=== PATIENT | female | born 1950 | race Caucasian/White ===

== ENCOUNTER 2017-01-13 09:30 | Outpatient (RCR) | payer MEDICARE, OTHER, MEDICAID, SELFPAY | END 2017-01-15 | LOC: INF 09:30 | PROVIDERS: Family Provider Physician Assistant Medical; PCP Physician Assistant Medical; Visit Provider Specialist | DX: C50.911 Malignant neoplasm of unspecified site of right female breast (principal) | CPT/HCPCS: 36592; 80053; 85025; 96375; 96413; 96417; 99058; 99214; 99215; C8908; G8427; J1100; J7060; J9267; J9306; J9355 ==

== ENCOUNTER → 2017-11-03 11:32 | Outpatient (CLI) | payer MEDICARE, MEDICAID, SELFPAY ==
--- NOTE | 2017-11-03 | DI.MG.S_ITS ---
BILATERAL DIGITAL SCREENING MAMMOGRAM 3D/2D WITH CAD: 11/03/2017 CLINICAL: Routine screening. Family history of breast cancer. Comparison is made to exams dated: 07/30/2016 mammogram, 07/30/2016 mammogram - [facility], and 06/24/2016 mammogram - [facility]. The tissue of both breasts is extremely dense, which lowers the sensitivity of mammography. Current study was also evaluated with a Computer Aided Detection (CAD) system. There are post operative findings in the right breast. No significant masses, calcifications, or other findings are seen in either breast. There has been no significant interval change. IMPRESSION: NEGATIVE There is no mammographic evidence of malignancy. A 1 year screening mammogram is recommended. This exam was interpreted at Station ID: [id number]. NOTE: For mammograms, a report in lay terms will be sent to the patient. Approximately 15% of breast malignancies will not be visualized mammographically. In the management of a palpable breast mass, a negative mammogram must not discourage biopsy of a clinically suspicious lesion. Electronically Signed By: Tomy bush/taylor:11/03/2017 16:59:58 copy to: Ricardo Sagastume letter sent: Normal Exam ACR BI-RADS Category 1: Negative 3341F
== END ==
PROVIDERS: PCP Physician Assistant Medical; Visit Provider Physician Assistant Medical
DX: Z12.31 Encounter for screening mammogram for malignant neoplasm of breast (principal); Z80.3 Family history of malignant neoplasm of breast
CPT/HCPCS: 77063; 77067

== ENCOUNTER 2017-12-16 09:20 | Day surgery (SDC) | payer MEDICARE, MEDICAID, SELFPAY ==
[2017-12-11 15:20] VITALS: BMI 23.2
[2017-12-16 09:46] VITALS: BP 124/80; PULSE 63; RESP 16; TEMP 36.8; O2SAT 99; BMI 23.2
[2017-12-16] MEDS: LACTATED RINGERS 1,000 ML 42 ML IV (10:05)
--- NOTE | 2017-12-16 10:10 | PM.HP.1 ---
History of Present Illness Date Patient Seen: 12/16/17 Time Patient Seen: 10:11 Chief complaint: port a cath removal [id number] Narrative: Very pleasant 67-year-old lady with a history of breast cancer. She has completed chemotherapy and her port is no longer required. She would very much like to have it removed. Patient History Medical History Arthritis (Acute) Constipation (Acute) Diverticulitis (Acute) Fibromyalgia (Acute) GERD (gastroesophageal reflux disease) (Acute) Hepatitis A (Acute) Migraines (Acute) Neuropathy (Acute) Port-A-Cath in place (Acute) Surgical History History of partial hysterectomy (Acute) Hx of cholecystectomy (Acute) Family & Social History Family History: Reviewed 12/16/17 by Nicole Lorenzo MD Social History: household members children Tobacco & Substance use: Smoking Status Never smoker alcohol intake current Substance Use Type does not use Meds Home Medications Medication Instructions Recorded Confirmed Type [ALL-ZYME] Q DAY #0 08/07/16 History [B-RIGHT ] Q DAY #0 08/07/16 History [CHARCOAL] 500 mg #0 08/07/16 History [KIDNEY BLEND] Q DAY #0 08/07/16 History [MILK THISTLE] 150 mg Q DAY #0 08/07/16 History [MORINGA LEAF POWDER] Q DAY #0 08/07/16 History [PROBIOTIC] Q DAY #0 08/07/16 History cholecalciferol (vitamin D3) 5,000 PO Q DAY #0 08/07/16 History [Vitamin D3] niacin 500 mg PO QDAY #0 08/07/16 History pyridoxine (vitamin B6) 300 mg PO QDAY #0 08/27/16 History zinc gluconate 1 tab PO QDAY #0 11/04/16 History [BILBERRY W/GRAPE EX] 80 mg PO QDAY #0 11/11/16 History [CALCIUM/MAGNESIUM] #0 11/11/16 History polysaccharide iron complex 15 mg PO Q DAY #0 12/16/16 History [IronUp] letrozole 2.5 mg PO DAILY 12/16/17 12/16/17 History Allergies Allergy/AdvReac Type Severity Reaction Status Date / Time Sulfa (Sulfonamide Allergy Unknown Pt unable Verified 12/16/17 09:44 Antibiotics) to [SULFA (SULFONAMIDE remember ANTIBIOTICS)] reaction sesame seed Allergy Rash Verified 12/11/17 15:24 Review of Systems Review of Systems All systems reviewed & are unremarkable except as noted in HPI and below Exam Vital Signs (past 8 hours): - 12/16/17 09:46 Temperature 98.2 F Pulse Rate 63 Respiratory Rate 16 Blood Pressure 124/80 H Pulse Oximetry 99 Oxygen Delivery Method Room Air Narrative Exam Narrative: Very pleasant well-nourished well-developed lady in no distress HEENT: Normocephalic and atraumatic, pupils are equal round reactive to light accommodation with anicteric sclera Lungs: Clear bilaterally Heart: Regular rate and rhythm without murmur rub or gallop Chest: Left subclavian port a cath in good position without erythema Abdomen: Soft, nontender, active bowel sounds Extremities: Warm and well perfused and without edema Assessment & Plan Plan: Assessment/Plan Narrative: Very pleasant 67-year-old lady with a history of breast cancer who has now completed chemotherapy. We discussed the risks and benefits of left subclavian port removal in the patient expressed desire to have the procedure.
--- NOTE | 2017-12-16 10:23 | SUR.OPER ---
Supine on padded OR bed, head on pillow, arms secured on padded arm boards at <90 degrees abduction, legs uncrossed, safety belt at thigh, tape over blanket over lower legs.
--- NOTE | 2017-12-16 10:32 | PM.OP.1 ---
Operative Date/Time/Diagnoses Date of procedure: 12/16/17 Time of procedure: 10:32 Pre-op diagnosis: Chemotherapy completed Post-op diagnosis: same Procedure & Clinicians Procedure: Left subclavian port removal Same procedure as scheduled: Yes Indications: Port no longer required Surgeon: Nicole Lorenzo Click Yes if Unassisted: Yes Anesthesia Type: General (Ahsaei) and Local Operative Notes Findings: Port removed in a single piece of tubing intact Closure Type: primary Estimated Blood Loss (mL): 2 Blood products transfused: none Procedure in detail: After obtaining informed consent, the patient was brought to the operating room and placed in the supine position on the operating table. Following successful induction of IV sedation with monitored anesthesia care, the chest was prepped and draped in the standard surgical fashion. A timeout was held per SCOAP protocol. Following infiltration with local anesthetic to create a field block, the existing healed incision was repeated. This was carried down through the skin and subcutaneous tissue to reveal the tubing of the implanted central venous device. The tubing was carefully dissected free from surrounding structures and delivered into the field. Pressure was held at the deltopectoral groove to prevent air embolus and backbleeding. After 5 minutes time, we continued with dissection of the remaining portion of the port. The reservoir itself remained in the pocket and has been incorporated into the tissue. This was carefully dissected free with judicious use of a scalpel. It was delivered into the field as a single piece with tubing attached. The incision was checked for hemostasis and irrigated with warm saline solution. Once we were satisfied that all was clean and dry, it was closed in 2 layers with Vicryl Monocryl sutures. Dermabond was applied to the skin incision. All sponge, needle, and instrument counts were correct at the conclusion of the case. The patient was allowed to awaken from sedation without difficulty and taken to the post anesthesia care unit in good condition. Complications: none Condition: stable Disposition: PACU Plan for aftercare: 1. Discharge to home 2. Follow-up with your primary doctor
[2017-12-16 10:36] VITALS: BP 94/55; PULSE 74; RESP 10; TEMP 36.1; O2SAT 97
[2017-12-16] MEDS: LIDOCAINE 1% W/EPI INJ 20 ML INJ (10:40)
[2017-12-16 10:42] VITALS: BP 96/51; PULSE 75; RESP 14; O2SAT 97
[2017-12-16] MEDS: BUPIVACAINE 0.5% (PF) VIAL 30 ML INJ (10:43)
[2017-12-16 10:46] VITALS: BP 101/63; PULSE 70; RESP 10; O2SAT 97
[2017-12-16 10:51] VITALS: BP 106/69; PULSE 67; RESP 10; O2SAT 99
[2017-12-16 11:03] VITALS: BP 105/70; PULSE 68; RESP 16; TEMP 36.3; O2SAT 97
== END 2017-12-16 11:15 | disposition home or self-care (01) ==
PROVIDERS: PCP Physician Assistant Medical; Visit Provider Surgery
PROC: (CPT 36590; principal; 2017-12-16 10:15)
DX: Z45.2 Encounter for adjustment and management of vascular access device (principal); Z85.3 Personal history of malignant neoplasm of breast
CPT/HCPCS: 36590; J2405; J2704; J3010

== ENCOUNTER → 2018-04-26 08:41 | Outpatient (CLI) | payer MEDICARE, MEDICAID, SELFPAY ==
[2018-04-26 09:01] LABS: Add Manual Diff / Slide Review NO; Eosinophils Percent Auto 3.8 % (2-4); Hematocrit 38.2 % (36-46); Lymphocytes Percent Auto 33.6 % (25-40); Mean Corpuscular HGB Conc 34.2 % (30-36); Mean Corpuscular Hemoglobin 30.8 PG (26-34); Neutrophils Absolute Auto 2400 /uL (3000-5900); Neutrophils Percent Auto 53.6 % (50-75); Platelet Count 231 X10^3/uL (150-400); Red Blood Cell Count 4.24 X10^6/uL (4.0-5.2); Red Cell Distribution Width 14.1 % (11.6-14.8); White Blood Cell Count 4.5 X10^3/uL (4.5-11.0)
[2018-04-26 09:30] LABS: Alanine Aminotransferase 29 IU/L (9-52); Albumin 4.6 g/dL (3.5-5.0); Albumin Globulin Ratio 1.5 (1.0-2.8); Alkaline Phosphatase 86 U/L (38-126); Aspartate Aminotransferase 37 IU/L (14-36); Bilirubin Total 0.2 mg/dL (0.2-1.3); Blood Urea Nitrogen 12 mg/dL (7-17); Calcium 9.6 mg/dL (8.4-10.2); Carbon Dioxide 29 mmol/L (22-32); Chloride 101 mmol/L (98-107); Estimated Glomerular Filt Rate > 60.0 mL/min (>60); Globulin 3.1 g/dL (1.7-4.1); Glucose 97 mg/dL (80-110); HEMOLYSIS < 15 (0-50); Potassium 4.3 mmol/L (3.4-5.1); Sodium 142 mmol/L (137-145); Total Protein 7.7 g/dL (6.3-8.2)
== END ==
PROVIDERS: PCP Physician Assistant Medical; Visit Provider Internal Medicine Hematology & Oncology
DX: C50.911 Malignant neoplasm of unspecified site of right female breast (principal)
CPT/HCPCS: 36415; 80053; 85025

== ENCOUNTER → 2018-10-12 09:26 | Outpatient (CLI) | payer MEDICARE, MEDICAID, SELFPAY | PROVIDERS: Family Provider Family Medicine; PCP Physician Assistant Medical; Visit Provider Internal Medicine Hematology & Oncology ==

== ENCOUNTER → 2018-12-29 09:19 | Outpatient (CLI) | payer MEDICARE, MEDICAID, SELFPAY ==
--- NOTE | 2018-12-29 | DI.MG.S_ITS ---
BILATERAL DIGITAL SCREENING MAMMOGRAM 3D/2D WITH CAD: 12/29/2018 CLINICAL: Routine screening. Personal history of right breast cancer. Family history of breast cancer. Comparison is made to exams dated: 11/03/2017 mammogram - [facility], 07/30/2016 mammogram - [facility], and 07/30/2016 mammogram. The tissue of both breasts is extremely dense, which lowers the sensitivity of mammography. Current study was also evaluated with a Computer Aided Detection (CAD) system. There is a round asymmetry in the right breast anterior depth central to the nipple seen on the craniocaudal view only. No other significant masses, calcifications, or other findings are seen in either breast. IMPRESSION: INCOMPLETE: NEEDS ADDITIONAL IMAGING EVALUATION The round asymmetry in the right breast may represent a cyst and is indeterminate. Additional views with possible ultrasound are recommended. This exam was interpreted at Station ID: [id number]. NOTE: For mammograms, a report in lay terms will be sent to the patient. Approximately 15% of breast malignancies will not be visualized mammographically. In the management of a palpable breast mass, a negative mammogram must not discourage biopsy of a clinically suspicious lesion. Electronically Signed By: Nicole Danielle M.D. lk/:12/29/2018 11:01:33 copy to: Ricardo Sagastume letter sent: Additional Imaging Needed ACR BI-RADS Category 0: Incomplete 3340F
== END ==
PROVIDERS: Family Provider Family Medicine; PCP Physician Assistant Medical; Visit Provider Physician Assistant Medical
DX: Z12.31 Encounter for screening mammogram for malignant neoplasm of breast (principal); Z85.3 Personal history of malignant neoplasm of breast; Z80.3 Family history of malignant neoplasm of breast
CPT/HCPCS: 77063; 77067

== ENCOUNTER → 2019-01-13 10:46 | Outpatient (CLI) | payer MEDICARE, MEDICAID, SELFPAY ==
--- NOTE | 2019-01-13 | DI.MG.S_ITS ---
UNILATERAL RIGHT DIGITAL DIAGNOSTIC MAMMOGRAM 3D/2D WITH ADDITIONAL VIEWS: 01/13/2019 CLINICAL: Additional evaluation requested from prior study. Comparison is made to exams dated: 12/29/2018 mammogram, 11/03/2017 mammogram - [facility], and 07/30/2016 mammogram - [facility]. The tissue of right breast is extremely dense, which lowers the sensitivity of mammography. There is an oval low density focal asymmetry with an obscured, indistinct, and circumscribed margin in the right breast at 12 o'clock anterior depth. This is less prominent. No other significant masses or calcifications are seen in the breast. IMPRESSION: INCOMPLETE: NEEDS ADDITIONAL IMAGING EVALUATION The oval low density focal asymmetry in the right breast is indeterminate. An ultrasound is recommended. This exam was interpreted at Station ID: [id number]. NOTE: For mammograms, a report in lay terms will be sent to the patient. Approximately 15% of breast malignancies will not be visualized mammographically. In the management of a palpable breast mass, a negative mammogram must not discourage biopsy of a clinically suspicious lesion. Electronically Signed By: Tomy bush/taylor:01/13/2019 14:43:07 copy to: Ricardo Sagastume [facility] BI-RADS Category 0: Incomplete 3340F
--- NOTE | 2019-01-13 13:29 | DI.US.S_ITS ---
COMPLETE ULTRASOUND OF RIGHT BREAST AND AXILLA: 01/13/2019 CLINICAL: Patient returns today to evaluate an architectural distortion in the right breast and palpable right axillary lump. Comparison is made to exams dated: 01/13/2019 mammogram, 12/29/2018 mammogram, 11/03/2017 mammogram, 01/13/2017 breast MRI, 09/24/2016 ultrasound - [facility], and 07/30/2016 mammogram - [facility]. Real-time ultrasound of the right breast four quadrants, retroareolar, and axilla regions was performed on the areas of interest. IMPRESSION: NEGATIVE There is no sonographic evidence of malignancy. A 1 year screening mammogram is recommended. Electronically Signed By: Tomy bush/taylor:01/20/2019 14:18:40 Entry: - 01/20/2019 14:18:40 copy to: Ricardo Sagastume letter sent: Clinical Evaluation Ultrasound BI-RADS: 1 Negative
== END ==
PROVIDERS: Family Provider Family Medicine; PCP Family Medicine; Visit Provider Internal Medicine Hematology & Oncology
DX: R92.8 Other abnormal and inconclusive findings on diagnostic imaging of breast (principal); N64.89 Other specified disorders of breast; N63.31 Unspecified lump in axillary tail of the right breast; C50.919 Malignant neoplasm of unspecified site of unspecified female breast
CPT/HCPCS: 76642; 77065; G0279

== ENCOUNTER → 2019-04-11 08:36 | Outpatient (CLI) | payer MEDICARE, MEDICAID, SELFPAY ==
[2019-04-11 09:33] LABS: Add Manual Diff / Slide Review NO; Basophils Absolute Auto 0 /uL (0-100); Basophils Percent Auto 0.7 % (0-2); Eosinophils Absolute Auto 200 /uL (0-450); Hematocrit 36.4 % (36-46); Hemoglobin 12.4 g/dL (12.0-16.0); Lymphocytes Absolute Auto 1400 /uL (1100-4500); Lymphocytes Percent Auto 35.4 % (25-40); Mean Corpuscular Hemoglobin 29.9 PG (26-34); Monocytes Absolute Auto 300 /uL (0-900); Monocytes Percent Auto 7.3 % (3-14); Neutrophils Absolute Auto 2100 /uL (1500-7000); Neutrophils Percent Auto 52.6 % (50-75); Platelet Count 236 X10^3/uL (150-400); Red Blood Cell Count 4.13 X10^6/uL (4.0-5.2); Red Cell Distribution Width 14.5 % (11.6-14.8); White Blood Cell Count 3.9 X10^3/uL (4.5-11.0)
[2019-04-11 09:39] LABS: Alanine Aminotransferase 21 IU/L (<35); Albumin 4.6 g/dL (3.5-5.0); Albumin Globulin Ratio 1.5 (1.0-2.8); Alkaline Phosphatase 65 U/L (38-126); Aspartate Aminotransferase 30 IU/L (14-36); BUN Creatinine Ratio 23.3 (6-22); Bilirubin Total 0.4 mg/dL (0.2-1.3); Blood Urea Nitrogen 14 mg/dL (7-17); Calcium 9.7 mg/dL (8.4-10.2); Carbon Dioxide 30 mmol/L (22-32); Chloride 104 mmol/L (98-107); Estimated Glomerular Filt Rate > 60.0 mL/min (>60); Glucose 101 mg/dL (80-110); HEMOLYSIS < 15 (0-50); Potassium 4.2 mmol/L (3.4-5.1); Sodium 139 mmol/L (137-145); Total Protein 7.6 g/dL (6.3-8.2)
[2019-04-13 15:20] LABS: Cancer Antigen 27.29 12 U/mL (< 38)
== END ==
PROVIDERS: PCP Family Medicine; Visit Provider Internal Medicine Hematology & Oncology
DX: C50.919 Malignant neoplasm of unspecified site of unspecified female breast (principal)
CPT/HCPCS: 36415; 80053; 85025; 86300

== ENCOUNTER → 2020-01-30 09:42 | Outpatient (CLI) | payer MEDICARE, MEDICAID, SELFPAY ==
--- NOTE | 2020-01-30 10:42 | DI.MG.S_ITS ---
Patient Name: JATINDER OCAMPO date: 1950 Sex: F Attending Physician: Nahum Indications: Date: 01/30/2020 11:00 At the request of: KATARINA GOLDBERG Procedure: MM screening mammo BI BILATERAL DIGITAL SCREENING MAMMOGRAM 3D/2D WITH CAD: 01/30/2020 CLINICAL: Routine screening. Family history of breast cancer. Breast cancer. Comparison is made to exams dated: 01/13/2019 mammogram, 12/29/2018 mammogram, and 11/03/2017 mammogram - [facility]. The tissue of both breasts is heterogeneously dense. This may lower the sensitivity of mammography. Current study was also evaluated with a Computer Aided Detection (CAD) system. There are benign post operative findings in the right breast. No significant masses, calcifications, or other findings are seen in either breast. There has been no significant interval change. IMPRESSION: BENIGN There is no mammographic evidence of malignancy. A 1 year screening mammogram is recommended. This exam was interpreted at Station ID: [id number]. NOTE: For mammograms, a report in lay terms will be sent to the patient. Approximately 15% of breast malignancies will not be visualized mammographically. In the management of a palpable breast mass, a negative mammogram must not discourage biopsy of a clinically suspicious lesion. Electronically Signed By: Artemio joseph/taylor:01/31/2020 09:25:32 letter sent: Normal Exam ACR BI-RADS Category 2: Benign Finding(s) 3342F
== END ==
PROVIDERS: PCP Family Medicine; Referring Provider Family Medicine; Visit Provider Internal Medicine Hematology & Oncology
DX: Z12.31 Encounter for screening mammogram for malignant neoplasm of breast (principal); Z80.3 Family history of malignant neoplasm of breast; C50.911 Malignant neoplasm of unspecified site of right female breast; Z17.0 Estrogen receptor positive status [ER+]; M85.831 Other specified disorders of bone density and structure, right forearm; Z78.0 Asymptomatic menopausal state; T38.6X5A Adverse effect of antigonadotrophins, antiestrogens, antiandrogens, not elsewhere classified, initial encounter
CPT/HCPCS: 77063; 77067; 77080

== ENCOUNTER → 2021-01-31 10:30 | Outpatient (CLI) | payer MEDICARE, MEDICAID, SELFPAY ==
--- NOTE | 2021-01-31 15:32 | DI.MG.S_ITS ---
BILATERAL DIGITAL SCREENING MAMMOGRAM 3D/2D WITH CAD: 01/31/2021 CLINICAL: Routine screening. Family history of breast cancer. Comparison is made to exams dated: 01/30/2020 mammogram, 01/13/2019 ultrasound, and 12/29/2018 mammogram - [facility]. The tissue of both breasts is heterogeneously dense. This may lower the sensitivity of mammography. Current study was also evaluated with a Computer Aided Detection (CAD) system. There are benign post operative findings in the right breast. No significant masses, calcifications, or other findings are seen in either breast. There has been no significant interval change. IMPRESSION: BENIGN There is no mammographic evidence of malignancy. A 1 year screening mammogram is recommended. This exam was interpreted at Station ID: [id number]. NOTE: For mammograms, a report in lay terms will be sent to the patient. Approximately 15% of breast malignancies will not be visualized mammographically. In the management of a palpable breast mass, a negative mammogram must not discourage biopsy of a clinically suspicious lesion. Electronically Signed By: Tomy bush/taylor:01/31/2021 16:16:55 letter sent: Normal Exam ACR BI-RADS Category 2: Benign Finding(s) 3342F
== END ==
PROVIDERS: PCP Family Medicine; Referring Provider Internal Medicine Hematology & Oncology; Visit Provider Internal Medicine Hematology & Oncology
DX: Z12.31 Encounter for screening mammogram for malignant neoplasm of breast (principal)
CPT/HCPCS: 77063; 77067

== ENCOUNTER → 2022-02-08 08:59 | Outpatient (CLI) | payer MEDICARE, MEDICAID, SELFPAY ==
--- NOTE | 2022-02-08 09:01 | DI.MG.S_ITS ---
BILATERAL DIGITAL SCREENING MAMMOGRAM 3D/2D WITH CAD: 02/08/2022 CLINICAL: Routine screening. Personal history of right breast cancer. Family history of breast cancer. Comparison is made to exams dated: 01/31/2021 mammogram, 01/30/2020 mammogram, and 12/29/2018 mammogram - [facility]. Both breasts are heterogeneously dense, which may obscure small masses (category c / 51-75% glandular tissue). Current study was also evaluated with a Computer Aided Detection (CAD) system. There are benign post operative findings in the right breast. No significant masses, calcifications, or other findings are seen in either breast. There has been no significant interval change. IMPRESSION: BENIGN There is no mammographic evidence of malignancy. A 1 year screening mammogram is recommended. This exam was interpreted at Station ID: [id number]. NOTE: For mammograms, a report in lay terms will be sent to the patient. Approximately 15% of breast malignancies will not be visualized mammographically. In the management of a palpable breast mass, a negative mammogram must not discourage biopsy of a clinically suspicious lesion. Electronically Signed By: Benedict Juan M.D., jr/taylor:02/10/2022 10:46:40 letter sent: Normal Exam ACR BI-RADS Category 2: Benign Finding(s) 3342F
== END ==
PROVIDERS: PCP Family Medicine; Referring Provider Internal Medicine Hematology & Oncology; Visit Provider Internal Medicine Hematology & Oncology
DX: Z12.31 Encounter for screening mammogram for malignant neoplasm of breast (principal); C50.919 Malignant neoplasm of unspecified site of unspecified female breast; Z80.3 Family history of malignant neoplasm of breast
CPT/HCPCS: 77063; 77067

== ENCOUNTER → 2023-03-03 08:41 | Outpatient (CLI) | payer MEDICARE, MEDICAID, SELFPAY ==
--- NOTE | 2023-03-03 08:44 | DI.MG.S_ITS ---
BILATERAL DIGITAL SCREENING MAMMOGRAM 3D/2D WITH CAD POST LUMPECTOMY: 03/03/2023 CLINICAL: Routine screening. Personal history of right breast cancer. Family history of breast cancer. Comparison is made to exams dated: 02/08/2022 mammogram, 01/31/2021 mammogram, and 01/30/2020 mammogram - [facility]. Both breasts are heterogeneously dense, which may obscure small masses (category c / 51-75% glandular tissue). Current study was also evaluated with a Computer Aided Detection (CAD) system. There are benign post operative findings in the right breast. No significant masses, calcifications, or other findings are seen in either breast. There has been no significant interval change. IMPRESSION: BENIGN There is no mammographic evidence of malignancy. A 1 year screening mammogram is recommended. This exam was interpreted at Station ID: [id number]. NOTE: For mammograms, a report in lay terms will be sent to the patient. Approximately 15% of breast malignancies will not be visualized mammographically. In the management of a palpable breast mass, a negative mammogram must not discourage biopsy of a clinically suspicious lesion. Electronically Signed By: Nicole young/taylor:03/03/2023 12:37:50 copy to: Sho Caceres PA-C letter sent: Normal Exam ACR BI-RADS Category 2: Benign Finding(s) 3342F
== END ==
PROVIDERS: PCP Family Medicine; Referring Provider Internal Medicine Hematology & Oncology; Visit Provider Internal Medicine Hematology & Oncology
DX: Z12.31 Encounter for screening mammogram for malignant neoplasm of breast (principal); C50.919 Malignant neoplasm of unspecified site of unspecified female breast
CPT/HCPCS: 77063; 77067

== ENCOUNTER → 2023-04-28 08:50 | Outpatient (CLI) | payer MEDICARE, MEDICAID, SELFPAY ==
[2023-04-28 19:15] LABS: Add Manual Diff / Slide Review NO; Basophils Absolute Auto 0 /uL (0-100); Basophils Percent Auto 0.9 % (0-2); Eosinophils Absolute Auto 200 /uL (0-450); Hematocrit 36.9 % (36-46); Hemoglobin 12.4 g/dL (12.0-16.0); Lymphocytes Absolute Auto 1400 /uL (1100-4500); Lymphocytes Percent Auto 31.6 % (25-40); Mean Corpuscular HGB Conc 33.7 % (30-36); Mean Corpuscular Hemoglobin 29.6 PG (26-34); Mean Corpuscular Volume 87.9 fL (80-100); Monocytes Absolute Auto 300 /uL (0-900); Monocytes Percent Auto 6.9 % (3-14); Neutrophils Absolute Auto 2400 /uL (1500-7000); Neutrophils Percent Auto 55.6 % (50-75); Platelet Count 230 X10^3/uL (150-400); Red Cell Distribution Width 13.8 % (11.6-14.8); White Blood Cell Count 4.4 X10^3/uL (4.5-11.0)
[2023-04-28 19:37] LABS: Alanine Aminotransferase 26 IU/L (<35); Albumin 4.2 g/dL (3.5-5.0); Albumin Globulin Ratio 1.4 (1.0-2.8); Alkaline Phosphatase 77 U/L (38-126); Aspartate Aminotransferase 33 IU/L (14-36); BUN Creatinine Ratio 15.5 (6-22); Bilirubin Total 0.6 mg/dL (0.2-1.3); Blood Urea Nitrogen 9 mg/dL (7-17); Calcium 9.5 mg/dL (8.4-10.2); Carbon Dioxide 25 mmol/L (22-32); Chloride 102 mmol/L (98-107); Cholesterol 210 mg/dL (140-199); Estimated Glomerular Filt Rate > 60 mL/min (>60); Globulin 2.9 g/dL (1.7-4.1); Glucose 103 mg/dL (80-110); HDL Cholesterol 104 mg/dL (40-60); HEMOLYSIS < 15 (0-50); LDL Cholesterol Calculated 89 mg/dL (<100); Sodium 135 mmol/L (137-145); Total Protein 7.1 g/dL (6.3-8.2); Triglycerides 86 mg/dL (35-150)
[2023-04-28 19:55] LABS: TSH w/ Reflex to FT4 0.64 uIU/mL (0.47-4.68)
== END ==
PROVIDERS: PCP Physician Assistant Medical; Visit Provider Physician Assistant Medical
DX: Z11.2 Encounter for screening for other bacterial diseases (principal); Z13.220 Encounter for screening for lipoid disorders; Z12.11 Encounter for screening for malignant neoplasm of colon
CPT/HCPCS: 80053; 80061; 84443; 85025

== ENCOUNTER → 2023-05-22 13:06 | Outpatient (CLI) | payer OTHER, MEDICAID, SELFPAY ==
[2023-05-27 10:36] LABS: Fecal Immunochemical Test Negative (Negative)
== END ==
LOC: LAB 06-23 13:07
PROVIDERS: PCP Physician Assistant Medical; Referring Provider Physician Assistant Medical; Visit Provider Physician Assistant Medical
DX: Z12.11 Encounter for screening for malignant neoplasm of colon (principal); Z12.12 Encounter for screening for malignant neoplasm of rectum
CPT/HCPCS: 82274

== ENCOUNTER 2023-06-08 09:06 | Day surgery (SDC) | payer OTHER, SELFPAY ==
[2023-06-08 11:11] VITALS: BP 113/76; PULSE 59; RESP 16; TEMP 36.7; O2SAT 98
[2023-06-08] MEDS: LACTATED RINGERS 1,000 ML 42 ML IV (11:14)
--- NOTE | 2023-06-08 11:48 | P.HP_ITS ---
History of Present Illness History of Present Illness Chief complaint: [facility] Medical History (Updated 05/20/23 @ 07:08 by Sho Caceres PA-C) Wears glasses Acne Osteoarthritis (~2005) Allergies Anxiety (~1993) Shoulder pain Foot pain Mumps Measles Chicken pox Sinusitis Vertigo Tinnitus Ovarian cyst (~1998) Hemorrhoid (~1979) Breast cancer (~2015) Port-A-Cath in place Arthritis Fibromyalgia (~1998) Neuropathy Migraines Constipation Diverticulitis (~1997) Hepatitis A (~1996) GERD (gastroesophageal reflux disease) Surgical History (Updated 04/27/23 @ 18:11 by Shell Bauman) Anesthesia Ganglion cyst (~1969) History of lumpectomy of right breast (~2016) History of partial hysterectomy Hx of cholecystectomy Family History (Updated 04/27/23 @ 18:14 by Shell Bauman) Father Cancer Hypertension Mother History of heart disease Hypertension Brother Prostate cancer Grandmother Diabetes mellitus History of heart disease Hypertension Grandfather Cancer Social History household members: children Smoking Status: Never smoker alcohol intake: current Meds Home Medications and Allergies Home Medications Medication Instructions Recorded Confirmed Type [KIDNEY BLEND] 1 tab Q DAY ##0 08/07/16 06/02/23 History [MILK THISTLE] 150 mg Q DAY ##0 08/07/16 06/02/23 History [MORINGA LEAF POWDER] 1 tab Q DAY ##0 08/07/16 06/02/23 History [PROBIOTIC] 1 tab Q DAY ##0 08/07/16 06/02/23 History cholecalciferol (vitamin D3) 100 5,000 unit PO Q DAY ##0 08/07/16 06/02/23 History mcg (4,000 unit) capsule (Vitamin D3) niacin 500 mg tablet 500 mg PO QDAY ##0 08/07/16 06/02/23 History glucosamine sulfate 500 mg tablet 500 mg DAILY 04/11/19 06/08/23 History (Glucosamine) Diotomaceous Earth 1 cap/day DAILY 02/06/20 06/08/23 History letrozole 2.5 mg tablet 2.5 mg PO DAILY breast cancer #90 04/07/22 06/08/23 Rx tabs magnesium oxide 400 mg PO BID 06/02/23 06/08/23 History Allergies Allergy/AdvReac Type Severity Reaction Status Date / Time Sulfa (Sulfonamide Allergy Unknown Pt unable Verified 06/08/23 10:48 Antibiotics) to [SULFA (SULFONAMIDE remember ANTIBIOTICS)] reaction sesame seed Allergy Rash Verified 06/08/23 10:48 Exam Vital Signs (past 8 hours): - 06/08/23 11:11 Temperature 98.0 F Pulse Rate 59 L Respiratory Rate 16 Blood Pressure 113/76 Pulse Oximetry 98 Oxygen Delivery Method Room Air Oxygen Delivery Method Room Air Narrative Exam Narrative: colon cancer screening. last scope was 20 years ago. No family history or symptoms of concern. Const General: cooperative and healthy appearing Nutritional Appearance: average body habitus [facility] Head: normocephalic and atraumatic Eyes Periorbital: periorbital findings normal Sclera: sclerae normal Neck Neck: trachea midline Resp Effort & Inspection: normal respiratory effort and able to speak in complete sentences Cardio Rate: regular rate Rhythm: regular rhythm GI Palpation: soft and No tender Skin General: elasticity normal and turgor normal Neuro General: patient alert, patient awake and patient oriented x3 Cognition: normal cognition Psych Mental Status: mental status grossly normal Affect: normal affect Judgment: judgment good Assessment & Plan Assessment & Plan narrative: colon cancer screening Plan: colonoscopy with anesthesia Time Spent With Patient Time with patient: less than 30 minutes
--- NOTE | 2023-06-08 12:03 | PM.OP.COLON ---
Operative Date/Time/Diagnoses Date of procedure: 06/08/23 Time of procedure: 12:03 Pre-op diagnosis: Colon cancer screening Post-op diagnosis: same Procedure & Clinicians Study performed: Colonoscopy with anesthesia Same procedure as scheduled: Yes Indications: Colon cancer screening Surgeon: Melodie Castillo Procedure Notes Procedure in detail: Preop diagnosis: Colon cancer screening Postop diagnosis: Same Operative procedure: Colonoscopy with anesthesia Surgeon: Maren Castillo MD Findings: Normal colonoscopy. No diverticulosis, no polyps Procedure: Patient placed in lateral position. Rectal exam is performed showing normal tone no masses. Colonoscope inserted into the rectum and advanced to ileocecal valve with minimal difficulty. Insufflation extraction of the scope had the above findings. Retroflex was included in the rectum Impression: Normal colonoscopy. No polyps, no diverticulosis. Plan: Repeat colonoscopy recommendations or 10 years or sooner if indicated by change in clinical condition Specimen(s): none sent Complications: none Post-procedure Recommendations: Colonoscopy in 10 years Follow up: as needed Disposition: PACU
[2023-06-08 12:05] VITALS: BP 100/56; PULSE 81; RESP 12; TEMP 36.3; O2SAT 96
[2023-06-08 12:10] VITALS: BP 91/50; PULSE 75; RESP 16; O2SAT 98
[2023-06-08 12:15] VITALS: BP 94/50; PULSE 74; RESP 18; TEMP 36.7; O2SAT 98
[2023-06-08 12:24] VITALS: BP 105/64; PULSE 72; RESP 16; O2SAT 97
== END 2023-06-08 12:38 | disposition home or self-care (01) ==
PROVIDERS: PCP Physician Assistant Medical; Referring Provider Surgery; Visit Provider Surgery
PROC: 0DJD8ZZ Inspection of Lower Intestinal Tract, Via Natural or Artificial Opening Endoscopic (ICD-10-PCS; CPT 45378; principal; 2023-06-08 11:15)
DX: Z12.11 Encounter for screening for malignant neoplasm of colon (principal)
CPT/HCPCS: G0121; J2704

== ENCOUNTER → 2023-07-08 10:14 | Outpatient (CLI) | payer OTHER, MEDICAID, SELFPAY ==
--- NOTE | 2023-07-08 | DI.ECHO.S_ITS ---
[facility] +---------+ : : [address] : : : : [id number] : : : : Phone: [phone]---------+ Echocardiogram Report + + :Name: JATINDER OCAMPO Study Date: 07/08/2023 Height: 62 in : :[facility] ReadingLocation: Weight: 125 lb : : Gender: Female BSA: 1.6 m2 : :: 1950 Age: 73 yrs BP: 122/82 mmHg: :Reason For Study: CHEST PAIN : :Ordering Physician: AMOL, : :FRANSISCO Performed By: Kianna Miller : :Referring: FRANSISCO CARMICHAEL : + + Interpretation Summary The left ventricle is normal in size and wall thickness. The left ventricular ejection fraction is normal. The ejection fraction is estimated to be 60-65%. The right ventricle is normal in size and function. There is mild to moderate tricuspid regurgitation. Compared to the prior echo exam, there has been an increase in TR severity. Previously mild TR. The right ventricular systolic pressure is estimated to be at least 24 mmHg based on an estimated right atrial pressure of 3 mm Hg. Procedure: A two-dimensional transthoracic echocardiogram with color flow and Doppler was performed. The study quality was technically adequate. Comparison is made with the echocardiogram of 02/05/2017. The patient was in sinus rhythm with heart rates between 64-75 bpm during the exam. Left Ventricle: The left ventricle is normal in size and wall thickness. There is no thrombus. The ejection fraction is estimated to be 60-65%. The left ventricular ejection fraction is normal. There are no focal wall motion abnormalities. Diastolic parameters suggest a relaxation abnormality of the left ventricle, consistent with probable normal filling pressures. Right Ventricle: The right ventricle is normal in size and function. Atria: The left atrium is mildly dilated. The left atrium has significantly decreased in size since the prior echo exam. The right atrium is mildly dilated. There is no Doppler evidence for an interatrial shunt. Mitral Valve: There is a flat closure plane of the the mitral valve leaflets. There is mild mitral regurgitation. Aortic Valve: The aortic valve is trileaflet. The aortic valve opens well. There is no aortic valve stenosis. No aortic regurgitation is present. Tricuspid Valve: The tricuspid valve is normal. There is mild to moderate tricuspid regurgitation. The right ventricular systolic pressure is estimated to be at least 24 mmHg based on an estimated right atrial pressure of 3 mm Hg. Compared to the prior echo exam, there has been an increase in TR severity. Pulmonic Valve: The pulmonic valve leaflets are thin and pliable; valve motion is normal. There is mild pulmonic regurgitation. Great Vessels: The aortic root is normal size. The ascending aorta could not be visualized. The IVC is of normal diameter and collapses greater than 50% with a sniff. This suggests a low right atrial pressure of 3 mm Hg. Pericardium/ Pleura There is no pericardial effusion. There is no pleural effusion. MMode/2D Measurements & Calculations LVIDd: 4.1 cm LVOT diam: 2.2 cm LVIDs: 2.7 cm Ao root diam: 3.2 cm FS: 34.9 % Ao Arch Diam (Prox Trans): 2.8 cm IVSd: 0.84 cm LVPWd: 0.86 cm LV brito. diameter/BSA (cm/m^2): 2.6 LV sys. diameter/BSA (cm/m^2): 1.7 LA A2 area: 18.7 cm2 RA long axis: 4.9 cm LA A4 area: 17.2 cm2 RA area: 14.9 cm2 LA length (vol): 4.9 cm RA vol: 38.9 ml LA vol: 55.9 ml RA : 24.9 ml/m2 LA vol index: 35.7 ml/m2 IVC diam: 0.98 cm RVD1 (basal): 3.8 cm RVD2 (mid): 2.9 cm TAPSE: 1.8 cm Doppler Measurements & Calculations Ao V2 max: 105.9 cm/sec LVOT Max Scott: 90.5 cm/sec Ao V2 mean: 79.4 cm/sec LV V1 max P.3 mmHg Ao max P.5 mmHg LV V1 VTI: 18.0 cm Ao mean P.7 mmHg CHRISTAL(I,D): 3.3 cm2 Ao V2 VTI: 21.2 cm CHRISTAL(V,D): 3.3 cm2 sev ratio: 0.85 CHRISTAL indexed to BSA (cm^2/m^2): 2.1 MV E max scott: 60.5 cm/sec TR max scott: 228.2 cm/sec MV A max scott: 65.8 cm/sec TR max P.8 mmHg MV E/A: 0.92 PA V2 max: 77.5 cm/sec Med Peak E' Scott: 8.9 cm/sec PA V2 mean: 54.8 cm/sec E/E' med: 6.8 PA mean P.3 mmHg Lat Peak E' Scott: 9.7 cm/sec PA pr(Accel): 24.2 mmHg E/E' lat: 6.2 E/e' average: 6.5 MV dec time: 0.25 sec SV(LVOT): 69.5 ml Reading Physician:11:00 AM
--- NOTE | 2023-07-08 10:15 | DI.RAD.S_ITS ---
Bone Density Report Name: JATINDER OCAMPO Age: 73 Sex: Female Ethnicity: Date of : 1950 Indication: postmenopausal; screening for osteoporosis; Referring Provider: ABENA OAKLEY Study: Bone densitometry was performed. Exam Date: July 08, 2023 Accession number: [id number] Bone Density: Region BMD T-score Z-score Classification AP Spine(L1, L3) 1.100 0.8 2.9 Normal Femoral Neck (Left) 0.703 -1.3 0.6 Osteopenia Total Hip (Left) 0.836 -0.9 0.7 Normal Femoral Neck (Right) 0.749 -0.9 1.0 Normal Total Hip (Right) 0.915 -0.2 1.4 Normal Total Hip Mean 0.875 -0.6 1.1 Normal World Health Organization criteria for BMD impression classify patients as: Normal (T-score at or above -1.0), Osteopenia (T-score between -1.0 and -2.5), or Osteoporosis (T-score at or below -2.5). 10-year Fracture Risk(1): Major Osteoporotic Fracture 5.2% Hip Fracture 0.8% Reported Risk Factors: [place] (), Neck BMD=0.703, BMI=22.9 (1) FRAX(R) Version 3.08. Fracture probability calculated for an untreated patient. Fracture probability may be lower if the patient has received treatment. Previous Exams: -- Region Exam Age BMD T-score BMD Change BMD Change Date g/cm2 vs Baseline vs Previous -- AP Spine (L1,L3) 07/08/2023 73 1.100 0.8 -0.139 (-11.2%)# -0.237 (-17.7%)# 01/30/2020 70 1.337 2.9 0.098 (7.9%)* 0.098 (7.9%)* 06/16/2017 67 1.240 2.1 Total Hip(Left) 07/08/2023 73 0.836 -0.9 -0.054 (-6.1%)# -0.011 (-1.3%)# 01/30/2020 70 0.847 -0.8 -0.043 (-4.8%)* -0.043 (-4.8%)* 06/16/2017 67 0.890 -0.4 Total Hip(Right) 07/08/2023 73 0.915 -0.2 -0.059 (-6.1%)# -0.046 (-4.8%)# 01/30/2020 70 0.961 0.2 -0.013 (-1.3%) -0.013 (-1.3%) 06/16/2017 67 0.974 0.3 -- *Denotes significance at 95% confidence level, LSC for AP Spine = 0.022 g/cm2, LSC for Total Hip = 0.027 g/cm2 Rate of change results reflect vertebral levels common to all scans # Denotes dissimilar scan types or analysis methods Impression: The patient has low bone mass, based on the Left Femoral Neck T-score. The patient has an estimated ten-year risk of hip fracture of 0.8% and an estimated ten-year risk of major fracture of 5.2%, based on the WHO FRAX algorithm. No significant bone loss was observed. Discussion: BONE DENSITY IS LOW AT ONE OR MORE SKELETAL SITES. This patient's lowest T-score is low at one or more skeletal sites. It meets the World Health Organization's (WHO) criteria for low bone mass (T-score between -1.0 and -2.5). The patient's 10-year risk of fracture as calculated by FRAX is less than the threshold where pharmacological therapy is recommended by the National Osteoporosis Foundation (NOF). However, all treatment decisions require clinical judgment and consideration of individual patient factors, including patient preferences, comorbidities, previous drug use, risk factors not captured in the FRAX model (e.g., frailty, falls, vitamin D deficiency, increased bone turnover, interval significant decline in bone density) and possible under or overestimation of fracture risk by FRAX. The patient should follow a healthful lifestyle (good nutrition with adequate calcium and vitamin D, and appropriate weight-bearing exercise). Follow-Up: Consider repeating this study in 2 to 3 years to reassess this patient's status, or sooner if there is some new clinical indication. Reported by: PARAM CUEVA MD on 07/08/2023 10:40:00 AM.
== END ==
PROVIDERS: PCP Physician Assistant Medical; Referring Provider Internal Medicine Cardiovascular Disease; Visit Provider Internal Medicine Cardiovascular Disease
DX: I08.1 Rheumatic disorders of both mitral and tricuspid valves (principal); R07.9 Chest pain, unspecified; R00.2 Palpitations; M85.852 Other specified disorders of bone density and structure, left thigh; Z78.0 Asymptomatic menopausal state
CPT/HCPCS: 77080; 93306

== ENCOUNTER → 2024-03-04 08:36 | Outpatient (CLI) | payer MEDICARE, MEDICAID, SELFPAY ==
--- NOTE | 2024-03-04 | DI.MG.S_ITS ---
BILATERAL DIGITAL SCREENING MAMMOGRAM 3D/2D WITH CAD: 03/04/2024 CLINICAL: Routine screening. Personal history of right breast cancer. Comparison is made to exams dated: 03/03/2023 mammogram, 02/08/2022 mammogram, 01/31/2021 mammogram, 01/30/2020 mammogram, 01/13/2019 mammogram, and 12/29/2018 mammogram - [facility]. The breasts are heterogeneously dense, which may obscure small masses (category c / 51-75% glandular tissue). Current study was also evaluated with a Computer Aided Detection (CAD) system. There are benign post operative findings in the right breast. No significant masses, calcifications, or other findings are seen in either breast. There has been no significant interval change. IMPRESSION: BENIGN There is no mammographic evidence of malignancy. A 1 year screening mammogram is recommended. This exam was interpreted at Station ID: [id number]. NOTE: For mammograms, a report in lay terms will be sent to the patient. Approximately 15% of breast malignancies will not be visualized mammographically. In the management of a palpable breast mass, a negative mammogram must not discourage biopsy of a clinically suspicious lesion. Electronically Signed By: Estrella Mckeon M.D., Ph.D. eb/penrad:03/05/2024 00:47:54 copy to: Sho Caecres PA-C letter sent: Normal Exam ACR BI-RADS Category 2: Benign
== END ==
PROVIDERS: PCP Physician Assistant Medical; Referring Provider Internal Medicine Hematology & Oncology; Visit Provider Internal Medicine Hematology & Oncology
DX: Z12.31 Encounter for screening mammogram for malignant neoplasm of breast (principal); Z85.3 Personal history of malignant neoplasm of breast; R92.333 Mammographic heterogeneous density, bilateral breasts
CPT/HCPCS: 77063; 77067

== ENCOUNTER → 2024-07-28 09:01 | Outpatient (CLI) | payer MEDICARE, MEDICAID, SELFPAY ==
--- NOTE | 2024-07-28 09:03 | DI.MRI.S_ITS ---
MR breast BI wo/w con: 07/28/2024. BI-RADS: 2 CLINICAL: 74-year old female for bilateral diagnostic breast MRI. Patient reports a history of right breast carcinoma diagnosed at age 67. No first-degree family history of breast cancer. PRIOR EXAMS 03/04/2024, 03/03/2023, 02/08/2022, 01/31/2021, 01/30/2020, 01/13/2019, 12/29/2018, 11/03/2017, 01/13/2017, 09/24/2016, 07/03/2016, 06/24/2016. MRI TECHNIQUE Bilateral breast MRI was performed on a 1.5 Adelaide magnet using a dedicated breast coil with mild compression. Axial T1 and T2 STIR sequences were obtained. Dynamic contrast enhanced VIBRANT fat-suppressed sequences were obtained. Delayed sagittal high resolution or sagittal reconstructed isotropic sequence was also obtained. Subtraction images and maximum intensity projection images were obtained. The study was evaluated using Invaluable software. IV Contrast: 20 ml ProHance. FIBROGLANDULAR TISSUE Bilateral: C. Heterogeneous fibroglandular tissue. BACKGROUND PARENCHYMAL ENHANCEMENT Bilateral: Minimal symmetrical background parenchymal enhancement. BREAST FINDINGS There are no abnormal axillary or internal mammary lymph nodes. Right Benign-appearing post-surgical changes noted. There is no suspicious finding with benign findings noted. No suspicious mass, suspicious non-mass enhancement, or other concerning finding identified. Left Benign-appearing skin lesions in the superior and lateral left breast are stable dating back to 01/13/2017. No suspicious mass, suspicious non-mass enhancement, or other concerning finding identified. IMPRESSION: * No evidence of malignancy with benign findings. RECOMMENDATIONS Bilateral * Annual screening mammography (due February 2025). OVERALL ASSESSMENT CATEGORY BI-RADS-2: Benign. ELECTRONICALLY SIGNED: Candy Lyons M.D. on 07/29/2024 at 06:16:34 PM PT Interpreting Station ID: [id number]
== END ==
PROVIDERS: PCP Physician Assistant Medical
DX: C50.411 Malignant neoplasm of upper-outer quadrant of right female breast (principal); Z17.0 Estrogen receptor positive status [ER+]; R92.30 Dense breasts, unspecified; Z85.3 Personal history of malignant neoplasm of breast
CPT/HCPCS: 77049; A9579

== ENCOUNTER → 2025-03-10 09:12 | Outpatient (CLI) | payer MEDICARE, MEDICAID, SELFPAY ==
--- NOTE | 2025-03-10 09:13 | DI.MG.S_ITS ---
MM screening mammo BI: 03/10/2025. BI-RADS: 2 CLINICAL: 75-year old female for bilateral screening mammogram. No Tyrer-Cuzick risk score calculation due to the patient's personal history of breast cancer. Patient reports a history of right breast carcinoma diagnosed at age 67. Status-post right lumpectomy with radiation therapy, chemotherapy and hormonal therapy. No first-degree family history of breast cancer. The patient had a prior right breast biopsy. PRIOR EXAMS 03/04/2024, 03/03/2023, 02/08/2022, 01/31/2021. MAMMOGRAPHY TECHNIQUE: 2D and 3D (tomosynthesis) digital mammographic views obtained, with additional images as needed for full coverage. Current study was also evaluated with a Computer Aided Detection (CAD) system. DENSITY C. The breasts are heterogeneously dense, which may obscure small masses. MAMMOGRAPHY FINDINGS Right: Benign-appearing post-surgical changes noted on the right. There are no suspicious masses, calcifications, or other findings in the breast. Left: No suspicious mass, asymmetry, microcalcification, or other abnormality seen. IMPRESSION: Right * No evidence of malignancy with benign findings. Left * No evidence of malignancy. RECOMMENDATIONS Bilateral * Annual screening mammography. OVERALL ASSESSMENT CATEGORY BI-RADS-2: Benign. The [employer] recommends annual screening mammography beginning at age 40 for women with average risk of breast cancer. ELECTRONICALLY SIGNED: Fredo Murguia M.D. on 03/10/2025 at 03:10:52 PM PT Interpreting Station ID: [id number]
== END ==
LOC: MAMMO 09:13
PROVIDERS: PCP Physician Assistant Medical; Referring Provider Physician Assistant Medical; Visit Provider Physician Assistant Medical
DX: Z12.31 Encounter for screening mammogram for malignant neoplasm of breast (principal); R92.333 Mammographic heterogeneous density, bilateral breasts; Z85.3 Personal history of malignant neoplasm of breast
CPT/HCPCS: 77063; 77067

== ENCOUNTER → 2025-03-23 09:58 | Outpatient (CLI) | payer MEDICARE, MEDICAID, SELFPAY ==
[2025-03-23 19:07] LABS: Add Manual Diff / Slide Review NO; Hematocrit 36.4 % (36-46); Hemoglobin 12.4 g/dL (12.0-16.0); Lymphocytes Absolute Auto 800 /uL (1100-4500); Mean Corpuscular HGB Conc 34.1 % (30-36); Mean Corpuscular Hemoglobin 30.4 PG (26-34); Mean Corpuscular Volume 89.2 fL (80-100); Platelet Count 223 X10^3/uL (150-400)
[2025-03-23 19:20] LABS: Hemoglobin A1C% w Est Avg Glu 5.9 % (4.0-6.0)
[2025-03-23 19:22] LABS: Alanine Aminotransferase 21 IU/L (<35); Albumin 4.6 g/dL (3.5-5.0); Albumin Globulin Ratio 1.6 (1.0-2.8); Alkaline Phosphatase 81 U/L (38-126); Blood Urea Nitrogen 11 mg/dL (7-17); Calcium 9.6 mg/dL (8.4-10.2); Carbon Dioxide 26 mmol/L (22-32); Chloride 99 mmol/L (98-107); Cholesterol 218 mg/dL (140-199); Estimated Glomerular Filt Rate > 60 mL/min (>60); Globulin 2.9 g/dL (1.7-4.1); Glucose 136 mg/dL (70-99); HEMOLYSIS < 15 (0-50); Potassium 4.2 mmol/L (3.4-5.1); Sodium 135 mmol/L (137-145); Total Protein 7.5 g/dL (6.3-8.2); Triglycerides 61 mg/dL (35-150)
[2025-03-23 19:33] LABS: HDL Cholesterol 158 mg/dL (40-60)
[2025-03-23 19:51] LABS: TSH w/ Reflex to FT4 0.95 uIU/mL (0.47-4.68)
[2025-03-23 20:06] LABS: HIV 1 & 2 Ab/Ag 4th Gen Combo NEGATIVE (NEGATIVE); Hep C Virus Ab w/Reflex Quant NEGATIVE s/c (NEGATIVE)
== END ==
PROVIDERS: PCP Physician Assistant Medical; Visit Provider Physician Assistant Medical
DX: Z13.220 Encounter for screening for lipoid disorders (principal); Z12.11 Encounter for screening for malignant neoplasm of colon; Z12.12 Encounter for screening for malignant neoplasm of rectum; Z11.2 Encounter for screening for other bacterial diseases; M85.80 Other specified disorders of bone density and structure, unspecified site; R79.89 Other specified abnormal findings of blood chemistry; R00.2 Palpitations; T78.40XA Allergy, unspecified, initial encounter; Z78.0 Asymptomatic menopausal state
CPT/HCPCS: 80053; 80061; 83036; 84443; 85025; 86803; 87389